=== PATIENT | female | born 1950 | race Caucasian/White ===

== ENCOUNTER → 2023-11-21 11:03 | Outpatient (CLI) | payer MEDICARE, OTHER, SELFPAY ==
--- NOTE | 2023-11-21 12:22 | DI.MRI.S_ITS ---
PROCEDURE: MR CERVICAL SPINE WO CON INDICATIONS: Other cervical disc displacement, unspecified cerv TECHNIQUE: Noncontrast sagittal T1 spin echo and T2 fast spin echo, sagittal STIR, foraminal oblique sagittal T2 fast spin echo, and axial gradient echo or T2 fast spin echo through the cervical spine. COMPARISON: None. FINDINGS: Image quality: Somewhat limited evaluation given patient motion. Alignment and Curvature: Anterolisthesis C4 and C5. Mild anterolisthesis of C6 on C7, C7 on T1, T1 on T2 and T2 on T3. Bone Marrow: Multilevel mild fibrovascular endplate change, most pronounced at C3-4 and C5-6. Spinal Cord: Visualized spinal cord has normal size and signal. No cerebellar tonsillar herniation. Paraspinous Soft Tissues: No paravertebral masses. Prevertebral soft tissues are normal in thickness. C2-3: Mild left facet arthropathy. Posterior disc osteophyte complex. No central canal stenosis. No right neural foraminal stenosis. Mild left neural foraminal stenosis. C3-4: Posterior disc osteophyte complex. Mild bilateral facet arthropathy. Mild central canal stenosis. Mild right neural foraminal stenosis. Moderate left neural foraminal stenosis. C3-4: Posterior disc osteophyte complex. Mild right, severe left facet arthropathy. Mild central canal stenosis. No right neural foraminal stenosis. No left neural foraminal stenosis. C5-6: Posterior disc osteophyte complex. Mild bilateral facet arthropathy. Mild central canal stenosis. Moderate right neural foraminal stenosis. Mild left neural foraminal stenosis. C6-7: Posterior disc osteophyte complex. No central canal stenosis. No neural foraminal stenosis. C7-T1: Unremarkable Other soft tissue findings: 2.8 cm left thyroid nodule, incompletely visualized. IMPRESSION: 1. 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 2. Additional neural foraminal stenosis as described above. 3. 2.8 cm left thyroid nodule. Recommend further evaluation with thyroid ultrasound. Dictated by: Carine Kimborugh M.D. on 11/21/2023 at 13:45 Approved by: Carine Kimbrough M.D. on 11/21/2023 at 13:58
== END ==
LOC: MRI 11:06
PROVIDERS: PCP Family Medicine; Referring Provider Nurse Practitioner; Visit Provider Nurse Practitioner
DX: M47.812 Spondylosis without myelopathy or radiculopathy, cervical region (principal); M48.02 Spinal stenosis, cervical region; M50.20 Other cervical disc displacement, unspecified cervical region; E04.1 Nontoxic single thyroid nodule
CPT/HCPCS: 72141

== ENCOUNTER → 2023-12-14 08:10 | Outpatient (CLI) | payer MEDICARE, OTHER, SELFPAY ==
[2023-12-14 19:16] LABS: Add Manual Diff / Slide Review NO; Basophils Absolute Auto 0 /uL (0-100); Eosinophils Absolute Auto 100 /uL (0-450); Eosinophils Percent Auto 1.6 % (2-4); Hematocrit 36.5 % (36-46); Hemoglobin 12.5 g/dL (12.0-16.0); Lymphocytes Absolute Auto 1500 /uL (1100-4500); Lymphocytes Percent Auto 30.8 % (25-40); Mean Corpuscular HGB Conc 34.2 % (30-36); Mean Corpuscular Hemoglobin 31.2 PG (26-34); Mean Corpuscular Volume 91.3 fL (80-100); Monocytes Absolute Auto 500 /uL (0-900); Monocytes Percent Auto 10.7 % (3-14); Neutrophils Absolute Auto 2600 /uL (1500-7000); Neutrophils Percent Auto 55.9 % (50-75); Platelet Count 309 X10^3/uL (150-400); Red Cell Distribution Width 14.6 % (11.6-14.8); White Blood Cell Count 4.7 X10^3/uL (4.5-11.0)
[2023-12-14 19:22] LABS: Alanine Aminotransferase 17 IU/L (<35); Albumin 4.3 g/dL (3.5-5.0); Albumin Globulin Ratio 1.9 (1.0-2.8); Alkaline Phosphatase 60 U/L (38-126); Aspartate Aminotransferase 26 IU/L (14-36); BUN Creatinine Ratio 30.2 (6-22); Bilirubin Total 0.7 mg/dL (0.2-1.3); Blood Urea Nitrogen 29 mg/dL (7-17); Calcium 10.1 mg/dL (8.4-10.2); Carbon Dioxide 32 mmol/L (22-32); Chloride 102 mmol/L (98-107); Cholesterol 260 mg/dL (140-199); Estimated Glomerular Filt Rate > 60 mL/min (>60); Globulin 2.3 g/dL (1.7-4.1); Glucose 96 mg/dL (80-110); HEMOLYSIS < 15 (0-50); Potassium 4.1 mmol/L (3.4-5.1); Sodium 139 mmol/L (137-145); Total Protein 6.6 g/dL (6.3-8.2); Triglycerides 58 mg/dL (35-150)
[2023-12-14 19:32] LABS: HDL Cholesterol 131 mg/dL (40-60); LDL Cholesterol Calculated 117 mg/dL (<100)
[2023-12-14 19:52] LABS: TSH w/ Reflex to FT4 0.42 uIU/mL (0.47-4.68)
[2023-12-14 20:17] LABS: Free T4, Direct Thyroxine 1.08 ng/dL (0.78-2.19)
== END ==
PROVIDERS: PCP Family Medicine; Visit Provider Family Medicine
DX: E04.1 Nontoxic single thyroid nodule (principal); E78.2 Mixed hyperlipidemia; R03.0 Elevated blood-pressure reading, without diagnosis of hypertension; Z85.3 Personal history of malignant neoplasm of breast
CPT/HCPCS: 80053; 80061; 84439; 84443; 85025

== ENCOUNTER → 2024-02-28 10:06 | Outpatient (CLI) | payer MEDICARE, OTHER, SELFPAY | PROVIDERS: PCP Family Medicine; Visit Provider Physician Assistant Medical | DX: R35.0 Frequency of micturition (principal); R35.89 Other polyuria | CPT/HCPCS: 87077; 87086; 87186; 87798; 87801 ==

== ENCOUNTER → 2025-01-05 15:34 | Outpatient (CLI) | payer MEDICARE, OTHER, SELFPAY | LOC: LAB 15:36 | PROVIDERS: PCP Family Medicine; Visit Provider Family Medicine | DX: R39.89 Other symptoms and signs involving the genitourinary system (principal); Z87.448 Personal history of other diseases of urinary system | CPT/HCPCS: 87077; 87086 ==